=== PATIENT | female | born 1965 | race Caucasian/White ===

== ENCOUNTER 2016-08-10 19:05 | Inpatient (IN) | payer OTHER, MEDICARE ==
[~2016-08-10] VITALS: Ht 160 cm; Wt 90.6 kg
[~2016-08-10 19:05] MED LIST: ATEN-102 PO; CEPH500 PO; CYMB30CA PO; DICL50 PO; DICL50TA3 PO; EFFE150C PO; GABA800T PO; HYDR12.56 PO; METF500 PO; ORPH100T PO; ROBA500T PO; SULF-154 PO; WAL-10TA2 PO
[2016-08-10 19:25] VITALS: BP 166/83; PULSE 76; RESP 16; TEMP 98.1; O2SAT 96
[2016-08-10] MEDS ORDERED: METH500T3 PO (19:25)
[2016-08-10] MEDS ORDERED: FLUT1INH INH (19:25)
[2016-08-10] MEDS ORDERED: DULO1CAP3 PO (19:25)
[2016-08-10] MEDS ORDERED: ATEN50TA PO (19:25)
[2016-08-10] MEDS ORDERED: METF500T PO (19:25)
[2016-08-10] MEDS ORDERED: GABA800T PO (19:25)
[2016-08-10] MEDS ORDERED: HYDR12.57 PO (19:25)
[2016-08-10] MEDS ORDERED: MONT10TA4 PO (19:25)
[2016-08-10] MEDS ORDERED: IBUP400T20 PO (19:25)
[2016-08-10 20:19] LABS: AUTOMATED NEUTROPHIL # 4.8 TH/MM3 (1.8-7.7); BASOPHIL # 0.1 TH/MM3 (0-0.2); BASOPHIL % 0.7 % (0.0-2.0); EOSINOPHIL # 0.4 TH/MM3 (0-0.4); EOSINOPHIL % 3.8 % (0.0-4.0); HEMATOCRIT 42.6 % (35.0-46.0); HEMO FLAGS DIFF FINAL; LYMPH % 37.6 % (9.0-44.0); LYMPHOCYTE # 3.7 TH/MM3 (1.0-4.8); MEAN CELL VOLUME 89.1 FL (80.0-100.0); MEAN CORPUSCULAR HEMOGLOBIN 30.2 PG (27.0-34.0); MEAN CORPUSCULAR HGB CONC 33.9 % (32.0-36.0); MONO % 9.5 % (0.0-8.0); NEUT % 48.4 % (16.0-70.0); PLATELET COUNT 336 TH/MM3 (150-450); RED BLOOD COUNT 4.78 MIL/MM3 (4.00-5.30); RED CELL DISTRIBUTION WIDTH 12.9 % (11.6-17.2); WHITE BLOOD COUNT 9.9 TH/MM3 (4.0-11.0)
[2016-08-10 20:23] LABS: AMPHETAMINE, URINE NEG (NEG); BARBITURATES, URINE NEG (NEG); COCAINE, URINE NEG (NEG)
[2016-08-10 20:41] LABS: ANION GAP 10 MEQ/L (5-15)
[2016-08-10 20:44] LABS: ALKALINE PHOSPHATASE 94 U/L (45-117); ALT (GPT) 28 U/L (10-53); AST (GOT) 24 U/L (15-37); BICARBONATE 26.3 MEQ/L (21.0-32.0); BLOOD UREA NITROGEN 9 MG/DL (7-18); CHLORIDE 103 MEQ/L (98-107); GLOMERULAR FILTRATION RATE 77 ML/MIN (>89); POTASSIUM 3.7 MEQ/L (3.5-5.1); SODIUM (NA) 139 MEQ/L (136-145); TOTAL BILIRUBIN ADULT 0.3 MG/DL (0.2-1.0)
--- NOTE | 2016-08-10 21:19 | PD ---
HPI Chief Complaint: Psychiatric Symptoms Time Seen by Provider: 21:18 Travel History International Travel<30 days: No Contact w/Intl Traveler<30days: No Traveled to known affect area: No History of Present Illness HPI 51-year-old female presents to the emergency Department a Dyer act with depression and thoughts of suicide. She states that she's been feeling depressed for many years and is on Cymbalta which she doesn't think is working. She doesn't have a plan to commit suicide but just wants to . She says she is tired. She denies homicidal ideation. Denies drug use, alcohol use. Reports a pack of cigarettes daily and is requesting a nicotine patch. Denies auditory or visual hallucinations. Says she has had pain to her lower right rib cage into the lateral right rib cage for 1 week. Pain is worse with movement and palpation. Pain is constant. She hasn't taken any medications or tried any treatment to alleviate her pain. She denies any heavy lifting, straining, fall. Denies chest pain, shortness of breath. Denies hemoptysis. Says she hears herself wheezing but that is due to the cigarettes. Denies fever , chills, nausea, vomiting, abdominal pain, change in urine or stool. Denies recent illness including cough, nasal congestion, sore throat, ear pain. She has history of diabetes and is on metformin 750 mg twice daily. History of hypertension. Allergies to Prozac, Seroquel, tramadol. No other modifying factors or associated signs and symptoms. PFSH Past Medical History Cardiovascular Problems: Yes (HTN) Diabetes: Yes Patient Takes Glucophage: Yes Diminished Hearing: No Respiratory: Yes (ASTHMA) Tetanus Vaccination: Unknown Influenza Vaccination: No ?: Not Past Surgical History Surgical History: No Previous Surgery Social History Alcohol Use: No Tobacco Use: Yes Substance Use: No Allergies-Medications (Allergen,Severity, Reaction): Coded Allergies: Seroquel (Verified Allergy, Severe, UNCONSCIOUS, 08/10/16) Prozac (Verified Adverse Reaction, Severe, raised hr, 08/10/16) Tramadol (Verified Adverse Reaction, Intermediate, anixiety, 08/10/16) Reported Meds & Prescriptions Reported Meds & Active Scripts Active Reported Metformin (Metformin HCl) 500 Mg Tab 500 Mg PO BIDPC With meals Hydrochlorothiazide 12.5 Mg Cap 12.5 Mg PO DAILY Duloxetine DR (Duloxetine HCl) 60 Mg Capdr 60 Mg PO DAILY Breo Ellipta Inh (Fluticasone/Vilanterol) 100-25 Mcg/Act Inh 1 Puff INH DAILY Use daily at the same time. Atenolol 50 Mg Tab 50 Mg PO DAILY Montelukast (Montelukast Sodium) 10 Mg Tab 10 Mg PO HS Methocarbamol 500 Mg Tab 1,000 Mg PO QID Ibuprofen 400 Mg Tab 400 Mg PO Q6H PRN Gabapentin 800 Mg Tab 800 Mg PO TID Review of Systems Except as stated in HPI: all other systems reviewed are Neg Physical Exam Narrative GENERAL: Well-nourished, well-developed female patient, in no acute distress SKIN: Warm and dry. HEAD: Atraumatic. Normocephalic. EYES: Pupils equal and round. ENT: Mucosa pink and moist. NECK: Supple. Trachea midline. CHEST: Reproducible tenderness under the right breast to the rib cage and around to the right lateral aspect; without deformity or crepitance. No retractions or use of accessory muscles. CARDIOVASCULAR: Regular rate and rhythm. No murmur appreciated. RESPIRATORY: No accessory muscle use. Clear to auscultation. Breath sounds equal bilaterally. GASTROINTESTINAL: Abdomen soft, non-tender, nondistended. Hepatic and splenic margins not palpable. Bowel sounds are active 4 quadrants. MUSCULOSKELETAL: No obvious deformities. No clubbing. No cyanosis. No edema. NEUROLOGICAL: Awake and alert. Oriented 3. No obvious cranial nerve deficits. Motor grossly within normal limits. Normal speech. Moves all extremities. 5/5 strength to all extremities. PSYCHIATRIC: No delusional thought processes. No hallucinations. Data Data Last Documented VS Vital Signs Date Time Temp Pulse Resp B/P Pulse Ox O2 Delivery O2 Flow Rate FiO2 08/10/16 19:27 16 08/10/16 19:25 98.1 76 166/83 96 Orders Complete Blood Count With Diff (08/10/16 19:27) Comprehensive Metabolic Panel (08/10/16 19:27) Drug Screen, Random Urine (08/10/16 19:27) Alcohol (Ethanol) (08/10/16 19:27) Psych Screen (08/10/16 19:27) Chest, Single Ap (08/10/16 21:24) Nicotine 21 Mg Patch.24 Hr (Habitrol 21 (08/10/16 21:30) Metformin (Glucophage) (08/10/16 21:30) Labs Laboratory Tests Test 08/10/16 19:30 White Blood Count 9.9 TH/MM3 Red Blood Count 4.78 MIL/MM3 Hemoglobin 14.4 GM/DL Hematocrit 42.6 % Mean Corpuscular Volume 89.1 FL Mean Corpuscular Hemoglobin 30.2 PG Mean Corpuscular Hemoglobin 33.9 % Concent Red Cell Distribution Width 12.9 % Platelet Count 336 TH/MM3 Mean Platelet Volume 6.9 FL Neutrophils (%) (Auto) 48.4 % Lymphocytes (%) (Auto) 37.6 % Monocytes (%) (Auto) 9.5 % Eosinophils (%) (Auto) 3.8 % Basophils (%) (Auto) 0.7 % Neutrophils # (Auto) 4.8 TH/MM3 Lymphocytes # (Auto) 3.7 TH/MM3 Monocytes # (Auto) 0.9 TH/MM3 Eosinophils # (Auto) 0.4 TH/MM3 Basophils # (Auto) 0.1 TH/MM3 CBC Comment DIFF FINAL Differential Comment Sodium Level 139 MEQ/L Potassium Level 3.7 MEQ/L Chloride Level 103 MEQ/L Carbon Dioxide Level 26.3 MEQ/L Anion Gap 10 MEQ/L Blood Urea Nitrogen 9 MG/DL Creatinine 0.79 MG/DL Estimat Glomerular Filtration 77 ML/MIN Rate Random Glucose 80 MG/DL Calcium Level 9.1 MG/DL Total Bilirubin 0.3 MG/DL Aspartate Amino Transf 24 U/L (AST/SGOT) Alanine Aminotransferase 28 U/L (ALT/SGPT) Alkaline Phosphatase 94 U/L Total Protein 7.6 GM/DL Albumin 3.8 GM/DL Urine Opiates Screen NEG Urine Barbiturates Screen NEG Urine Amphetamines Screen NEG Urine Benzodiazepines Screen POS Urine Cocaine Screen NEG Urine Cannabinoids Screen NEG Ethyl Alcohol Level LESS THAN 3 MG/DL MDM Medical Decision Making Medical Screen Exam Complete: Yes Emergency Medical Condition: Yes Medical Record Reviewed: Yes Differential Diagnosis Medical clearance for psych evaluation, muscle strain, rib contusion Narrative Course 51-year-old female presents under Dyer act. Patient complaining of right lower rib pain that radiates to the right lateral ribs. Pain is reproducible on physical exam. No deformity, crepitance, retractions, tachypnea. Chest x- ray ordered. Nicotine patch ordered per patient request. She presents a pack of cigarette per day. Patient is diabetic and on metformin; reports being on 750 mg twice a day. According to her record she is on 500 mg twice a day. Patient had he had food tray approximately 30-60 minutes ago. Metformin 500 mg 1 ordered. Labs are unremarkable. 2201: Chest x-ray concludes No acute disease and osseous structures are intact. Patient medically cleared for psych evaluation. Diagnosis Primary Impression: Medical clearance for psychiatric admission Condition: Stable Araceli Bañuelos Aug 10, 2016 21:19
[2016-08-10] MEDS ORDERED: metFORMIN HCL 500 MG TAB PO ONE (21:30)
[2016-08-10] MEDS ORDERED: NICOTINE 21 MG/24 HR PATCH TD ONE (21:30)
--- NOTE | 2016-08-10 21:52 | RADRPT ---
EXAM DATE/TIME: 08/10/2016 21:49 [facility] COMPARISON: No previous studies available for comparison. INDICATIONS : Chest pain. MEDICAL HISTORY : Asthma. SURGICAL HISTORY : Hysterectomy. ENCOUNTER: Initial ACUITY: 1 day PAIN SCORE: 7/10 LOCATION: Right chest FINDINGS: A single view of the chest demonstrates the lungs to be symmetrically aerated without evidence of mas s, infiltrate or effusion. The cardiomediastinal contours are unremarkable. Osseous structures are intact. CONCLUSION: No acute disease. Brooks Robert MD on August 10, 2016 at 21:50 Board Certified Radiologist. This report was verified electronically.
[2016-08-10 22:45] VITALS: BP 138/70; PULSE 72; RESP 18; TEMP 97.4; O2SAT 96
[2016-08-11 03:11] VITALS: BP 168/80; PULSE 67; RESP 18; TEMP 97.4; O2SAT 96
[2016-08-11 06:25] VITALS: BP 169/94; PULSE 70; RESP 18; O2SAT 97
[2016-08-11 10:43] VITALS: BP 127/63; PULSE 79; RESP 16; O2SAT 95
[2016-08-11] MEDS ORDERED: LORazepam 2 MG/ML VIAL IM PRN (13:30)
[2016-08-11] MEDS ORDERED: MAGNESIUM HYDROXIDE SUSP 30 ML CUP PO PRN (13:30)
[2016-08-11] MEDS ORDERED: ALUMINUM/MAGNESIUM/SIMETH 30 ML CUP PO PRN (13:30)
[2016-08-11 14:30] VITALS: BP 129/83; PULSE 78; RESP 18; TEMP 97
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
[2016-08-11] MEDS: DULoxetine HCl DR 60 MG CAP PO SCH (16:38)
[2016-08-11] MEDS ORDERED: RESP: ALBUTEROL 2.5 MG/3 ML NEB (PRN) NEB (17:30)
--- NOTE | 2016-08-11 17:41 | PD.CONS ---
[facility] Request[facility] By Dr. Souza Reason for Consult Medical management Primary Care Physician Unknown Diagnoses: History of Present Illness The patient is a 51-year-old female with a past medical history of hypertension , hyperlipidemia, diabetes and depression who is presenting to the hospital with suicidal ideation. The patient says she is recovering alcoholic and says she binged on alcohol over the holidays. She said she got very depressed in regards to the holidays and dealing with her children and she started to develop ideas of harming herself. She says she did not have a specific plan but she said she has tried to kill herself in the past by taking lots of pills. She says she has been undergoing a significant amount of stress lately. She says her last suicide attempt was over a year ago. She says she went to her primary care doctor and told her that she was thinking about these things and she was brought to the hospital. The patient mentions that she generally gets fever blisters under times of stress. She complains of cold sores around her lips as well as on her wrists and ankles. She says she generally takes Abreva for the cold sores on her lips. She says the blisters on her wrists and ankles are healing. The patient mentions she had left foot surgery a year ago and still has problems with her left foot going numb every once in a while. She says she checks her blood sugar regularly and it is relatively well controlled. Review of Systems Constitutional: COMPLAINS OF: Fatigue, Weight gain, DENIES: Fever Ears, nose, mouth, throat: COMPLAINS OF: Oral lesions Respiratory: COMPLAINS OF: Cough Cardiovascular: DENIES: Lower Extremity Edema Gastrointestinal: DENIES: Constipation Musculoskeletal: COMPLAINS OF: Joint pain, Muscle aches Integumentary: COMPLAINS OF: Abnormal pigmentation, Rash Neurologic: COMPLAINS OF: Abnormal gait, Paresthesias Psychiatric: COMPLAINS OF: Mood changes, Depression, Suicidal Ideation Past Family Social History Allergies: Coded Allergies: Seroquel (Verified Allergy, Severe, UNCONSCIOUS, 08/10/16) Prozac (Verified Adverse Reaction, Severe, raised hr, 08/10/16) Tramadol (Verified Adverse Reaction, Intermediate, anixiety, 08/10/16) Past Medical History Diabetes Depression Asthma Hypertension Hyperlipidemia Past Surgical History Left foot surgery Back surgery Active Ordered Medications Current Medications Medications (Trade) Dose Ordered Sig/Dior Route Start Time Stop Time Status Last Admin (Ativan) 1 mg Q6H PRN PO 08/11/16 13:30 (Ativan Inj) 1 mg Q6H PRN IM 08/11/16 13:30 (Tylenol) 650 mg Q4H PRN PO 08/11/16 13:30 (Milk Of Magnesia Liq) 30 ml DAILY PRN PO 08/11/16 13:30 (Mag-Al Plus Susp Liq) 30 ml Q6H PRN PO 08/11/16 13:30 (Cymbalta Dr) 60 mg DAILY PO 08/11/16 16:00 08/11/16 16:38 (Abilify) 10 mg HS PO 08/11/16 21:00 (Wellbutrin Sr) 150 mg BID PO 08/11/16 21:00 (Tenormin) 50 mg DAILY PO 08/11/16 17:15 (Breo Ellipta 100-25 Inh) 1 puff DAILY INH 08/11/16 17:15 (Neurontin) 800 mg TID PO 08/11/16 18:00 (Microzide) 12.5 mg DAILY PO 08/12/16 09:00 (Glucophage) 500 mg BIDPC PO 08/11/16 18:00 (Singulair) 10 mg HS PO 08/11/16 21:00 (Flu (Quadrivalent) Vaccine Inj) 0.5 ml ONCE ONCE IM 08/12/16 10:00 08/12/16 10:01 (Habitrol 21 Mg Patch.24 Hr) 1 patch DAILY TD 08/11/16 17:30 UNV Family History Hypertension Hyperlipidemia Diabetes Depression CAD Social History The patient smokes one pack of cigarettes daily. She used to be an alcoholic but did relapse this holiday season, her last drink being about 5 days ago. She denies illicit drug use. Physical Exam Vital Signs Vital Signs Date Time Temp Pulse Resp B/P Pulse Ox O2 Delivery O2 Flow Rate FiO2 08/11/16 14:30 97.0 78 18 129/83 08/11/16 10:43 79 16 127/63 95 08/11/16 06:25 70 18 169/94 97 08/11/16 03:11 97.4 67 18 168/80 96 Room Air 08/10/16 22:45 97.4 72 18 138/70 96 Room Air 08/10/16 19:27 16 08/10/16 19:25 98.1 76 16 166/83 96 Physical Exam GENERAL: This is a well-nourished, well-developed patient, in no apparent distress. SKIN: Herpetic lesions around lips. Sores on bilateral wrists. HEAD: Atraumatic. Normocephalic. No temporal or scalp tenderness. EYES: Pupils equal round and reactive. Extraocular motions intact. No scleral icterus. No injection or drainage. ENT: Nose without bleeding, purulent drainage or septal hematoma. Throat without erythema, tonsillar hypertrophy or exudate. Uvula midline. Airway patent. NECK: Trachea midline. No JVD or lymphadenopathy. Supple, nontender, no meningeal signs. CARDIOVASCULAR: Regular rate and rhythm without murmurs, gallops, or rubs. RESPIRATORY: Clear to auscultation. Breath sounds equal bilaterally. No wheezes , rales, or rhonchi. GASTROINTESTINAL: Abdomen soft, non-tender, nondistended. No hepato-splenomegaly , or palpable masses. No guarding. MUSCULOSKELETAL: Extremities without clubbing, cyanosis, or edema. No joint tenderness, effusion, or edema noted. NEUROLOGICAL: Awake and alert. Cranial nerves II through XII intact. Motor and sensory grossly within normal limits. Five out of 5 muscle strength in all muscle groups. Normal speech. PSYCH: Mood and affect appropriate. Laboratory Laboratory Tests Test 08/10/16 19:30 White Blood Count 9.9 Red Blood Count 4.78 Hemoglobin 14.4 Hematocrit 42.6 Mean Corpuscular Volume 89.1 Mean Corpuscular Hemoglobin 30.2 Mean Corpuscular Hemoglobin 33.9 Concent Red Cell Distribution Width 12.9 Platelet Count 336 Mean Platelet Volume 6.9 Neutrophils (%) (Auto) 48.4 Lymphocytes (%) (Auto) 37.6 Monocytes (%) (Auto) 9.5 Eosinophils (%) (Auto) 3.8 Basophils (%) (Auto) 0.7 Neutrophils # (Auto) 4.8 Lymphocytes # (Auto) 3.7 Monocytes # (Auto) 0.9 Eosinophils # (Auto) 0.4 Basophils # (Auto) 0.1 CBC Comment DIFF FINAL Differential Comment Sodium Level 139 Potassium Level 3.7 Chloride Level 103 Carbon Dioxide Level 26.3 Anion Gap 10 Blood Urea Nitrogen 9 Creatinine 0.79 Estimat Glomerular Filtration 77 Rate Random Glucose 80 Calcium Level 9.1 Total Bilirubin 0.3 Aspartate Amino Transf 24 (AST/SGOT) Alanine Aminotransferase 28 (ALT/SGPT) Alkaline Phosphatase 94 Total Protein 7.6 Albumin 3.8 Urine Opiates Screen NEG Urine Barbiturates Screen NEG Urine Amphetamines Screen NEG Urine Benzodiazepines Screen POS Urine Cocaine Screen NEG Urine Cannabinoids Screen NEG Ethyl Alcohol Level LESS THAN 3 Result Diagram: 08/10/16192908/10/161929 Imaging Last Impressions Chest X-Ray 08/10/162123 Signed Impressions: Service Date/Time: Wednesday, August 10, 2016 21:49 - CONCLUSION: No acute disease. Brooks Robert MD Assessment and Plan Assessment and Plan Suicidal ideation The patient has a history of depression and previous suicide attempts. - Care per psychiatry. Diabetes The patient is on metformin as an outpatient. - Resume metformin and place on an insulin sliding scale. - Diabetic diet. Hypertension Blood pressure well controlled at this time. - Resume home medications including hydrochlorothiazide and atenolol. - Clonidine as needed. Cold sores The patient says she generally gets cold sores under times of stress. - Acyclovir cream ordered for a 5 day course. Change to PO if no improvement. Asthma Well-controlled at this time. Chest x-ray unremarkable. - Continue home inhaler. - Albuterol nebs as needed. Family history of CAD The patient reports concerns regarding her family history of heart disease. Chest x-ray unremarkable. - Check an EKG. PPx: Ambulation. Medicine will sign off on this stable patient. Please reconsult if needed. Discussed Condition With Pt. Je Thomas DO Aug 11, 2016 17:41
[2016-08-11] MEDS ORDERED: cloNIDine HCL 0.1 MG TAB PO PRN (17:45)
[2016-08-11] MEDS ORDERED: DEXTROSE 50% IN WATER 50 ML VIAL(D50) IV PUSH PRN (17:45)
[2016-08-11] MEDS ORDERED: GLUCAGON 1 MG/ML VIAL OTHER PRN (17:45)
[2016-08-11] MEDS: REMOVE OLD NICODERM (NICOTINE) PATCH TD SCH (18:00)
[2016-08-11] MEDS: THIAMINE HCL 100 MG TAB PO SCH (18:39)
[2016-08-11] MEDS: ATENOLOL 50 MG TAB PO SCH (18:39)
[2016-08-11] MEDS: metFORMIN HCL 500 MG TAB PO SCH (18:39)
[2016-08-11] MEDS: MULTIVITAMIN TAB PO SCH (18:39)
[2016-08-11] MEDS: FOLIC ACID 1 MG TAB PO SCH (18:39)
[2016-08-11] MEDS: GABAPENTIN 400 MG CAP PO SCH (18:39)
[2016-08-11 19:32] VITALS: BP 125/81; PULSE 68; RESP 18; TEMP 98.3; O2SAT 99
[2016-08-11] MEDS: MONTELUKAST SODIUM 10 MG TAB PO SCH (20:49)
[2016-08-11] MEDS: ARIPiprazole 10 MG TAB PO SCH (20:50)
[2016-08-11] MEDS: buPROPion HCL 150 MG SUSTAINED RELEASE TAB PO SCH (20:50)
[2016-08-11] MEDS: LORazepam 1 MG TAB PO PRN (20:54)
[2016-08-11] MEDS: ACYCLOVIR 5% CREAM 5 GM TUBE TOPICAL SCH ×2 (21:00→22:00)
[2016-08-11] MEDS: INSULIN ASPART SUPPLEMENTAL SCALE SQ SCH (21:00)
[2016-08-12 05:59] VITALS: BP 112/59; PULSE 64; RESP 17; TEMP 98.2; O2SAT 96
[2016-08-12] MEDS: ACYCLOVIR 5% CREAM 5 GM TUBE TOPICAL SCH ×5 (06:00→20:36)
[2016-08-12] MEDS: INSULIN ASPART SUPPLEMENTAL SCALE SQ SCH ×4 (06:15→20:45)
[2016-08-12 08:33] LABS: ANION GAP 8 MEQ/L (5-15); BICARBONATE 28.2 MEQ/L (21.0-32.0); BLOOD UREA NITROGEN 21 MG/DL (7-18); CHLORIDE 104 MEQ/L (98-107); POTASSIUM 4.1 MEQ/L (3.5-5.1); SODIUM (NA) 140 MEQ/L (136-145)
[2016-08-12 08:37] LABS: GLOMERULAR FILTRATION RATE 89 ML/MIN (>89); HDL CHOLESTEROL 48.8 MG/DL (40.0-60.0); LDL CHOLESTEROL 72 MG/DL (0-99)
[2016-08-12] MEDS: HYDROCHLOROTHIAZIDE 12.5 MG CAP PO SCH (08:57)
[2016-08-12] MEDS: NICOTINE 21 MG/24 HR PATCH TD SCH ×2 (08:57→09:00)
[2016-08-12] MEDS: FOLIC ACID 1 MG TAB PO SCH (08:58)
[2016-08-12] MEDS: THIAMINE HCL 100 MG TAB PO SCH (08:58)
[2016-08-12] MEDS: buPROPion HCL 150 MG SUSTAINED RELEASE TAB PO SCH ×2 (08:58→20:36)
[2016-08-12] MEDS: DULoxetine HCl DR 60 MG CAP PO SCH (08:58)
[2016-08-12] MEDS: ATENOLOL 50 MG TAB PO SCH (08:58)
[2016-08-12] MEDS: GABAPENTIN 400 MG CAP PO SCH ×3 (08:58→17:18)
[2016-08-12] MEDS: metFORMIN HCL 500 MG TAB PO SCH ×2 (08:58→17:18)
[2016-08-12] MEDS: MULTIVITAMIN TAB PO SCH (08:59)
[2016-08-12] MEDS: REMOVE OLD NICODERM (NICOTINE) PATCH TD SCH (09:00)
[2016-08-12] MEDS: FLUTICASONE 100 MCG/VILANTEROL 25 MCG INHALER INH SCH ×2 (09:00→09:01)
[2016-08-12] MEDS ORDERED: INFLUENZA VIRUS VACCINE (QUADRIVALENT) 0.5 ML SYR IM ONE (10:00)
[2016-08-12] MEDS: LORazepam 1 MG TAB PO PRN ×3 (10:15→22:02)
[2016-08-12] MEDS: ACETAMINOPHEN 325 MG TAB PO PRN ×2 (10:15→16:21)
[2016-08-12 11:38] LABS: HEMOGLOBIN A1a 1.7 %; HEMOGLOBIN A1b 2.2 %; HEMOGLOBIN Ao 82.4 %; HEMOGLOBIN LA1C 2.5 %; HEMOGLOBIN P3 4.4 %
--- NOTE | 2016-08-12 13:35 | HHI.PYPN ---
Subjective Remarks Patient was seen and discussed with the property staff accountant. Patient claimed that she has been doing okay. Still has been feeling somewhat sad and depressed and guilty but working on her guilt. Feels safe in the hospital and denied any suicidal ideation intentions or plan. No behavior or management problem reported. Patient is complaining of some sedation probably secondary to the medication. Patient slept fairly well. Complains of some vivid dreams. Could be reassured. Continue with the same treatment Review of Systems Except as stated in HPI: all other systems reviewed are Neg Psychiatric: COMPLAINS OF: Anxiety, Mood changes, Depression Objective Alert: Yes [place]: Person, Place, Situation Mood: Anxious, Depressed Affect: Labile Memory Intact: Recent Hallucinations: Other (mildly impaired memory for recent events denied any active auditory or visual hallucinations) Delusions: No Delusion Type: Other (no delusional material at this time) Suicidal: Ideation (patient denied any active suicidal ideation intentions or plan feels safe in the hospital) Homicidal: Ideation (denied) Insight/Judgement Fair Labs Test 08/12/16 07:01 Sodium Level 140 MEQ/L Potassium Level 4.1 MEQ/L Chloride Level 104 MEQ/L Carbon Dioxide Level 28.2 MEQ/L Anion Gap 8 MEQ/L Blood Urea Nitrogen 21 MG/DL Creatinine 0.70 MG/DL Estimat Glomerular Filtration 89 ML/MIN Rate Random Glucose 114 MG/DL Hemoglobin A1c 6.3 % Calcium Level 10.0 MG/DL Triglycerides Level 181 MG/DL Cholesterol Level 157 MG/DL LDL Cholesterol 72 MG/DL HDL Cholesterol 48.8 MG/DL Cholesterol/HDL Ratio 3.21 RATIO Vitals/IOs Vital Signs Date Time Temp Pulse Resp B/P Pulse Ox O2 Delivery O2 Flow Rate FiO2 08/12/16 05:59 98.2 64 17 112/59 96 08/11/16 03:11 Room Air Assessment & Plan Problem List: (1) Bipolar affective disorder, depressed, moderate ICD Code: F31.32 (2) Chronic back pain ICD Code: M54.9 Assessment & Plan Estimated LOS: days Justification for Cont. Inpt. Monitoring of the medication and titrating the medication to stabilize the mood Request HC Surrog/Guard Advoc?: No Problem Qualifiers (1) Chronic back pain: Baltazar Souza MD Aug 12, 2016 13:35
--- NOTE | 2016-08-12 14:30 | EKG ---
Date Performed: 08/11/2016 Time Performed: 17:47:25 PTAGE: 51 years EKG: Sinus rhythm NORMAL ECG NO PREVIOUS TRACING DOCTOR: Phyllis Healy Interpretating Date/Time 08/12/2016 14:22:56
--- NOTE | 2016-08-12 17:13 | HHI.PR ---
Subjective Remarks Follow-up for toothache next Patient complained of toothache, right lower molar and right shoulder pain from a fall. No fever or chills. No nausea and vomiting. Objective Vitals Vital Signs Date Time Temp Pulse Resp B/P Pulse Ox O2 Delivery O2 Flow Rate FiO2 08/12/16 05:59 98.2 64 17 112/59 96 08/11/16 19:32 98.3 68 18 125/81 99 Result Diagram: 08/10/16 1930 08/12/16 0701 Objective Remarks Not in distress, well-nourished, looks stated age PERRL, pink conjunctiva without injection, anicteric Nose without bleeding, airway patent, oropharynx clear Poor dentition with numerous cavities. Cold sores lower lip Normal rate and regular rhythm, no murmurs gallops or rubs appreciated. Clear to auscultation and symmetric bilaterally, normal respiratory effort. Normal bowel sounds, soft, non-tender, nondistended, no guarding. Extremities without clubbing, cyanosis, or edema. No rash of generalized distribution. Skin is warm and dry. AAO x3, no cranial nerve deficits, moves all 4 extremities, no focal neurologic deficits. Good range of motion right shoulder, mildly tender. Normal mood, appropriate affect A/P Assessment and Plan Suicidal ideation The patient has a history of depression and previous suicide attempts. - Care per psychiatry. Diabetes The patient is on metformin as an outpatient. - Resume metformin and place on an insulin sliding scale. - Diabetic diet. Hypertension Blood pressure well controlled at this time. - Resume home medications including hydrochlorothiazide and atenolol. - Clonidine as needed. Cold sores The patient says she generally gets cold sores under times of stress. - Acyclovir cream ordered for a 5 day course. Change to PO if no improvement. Asthma Well-controlled at this time. Chest x-ray unremarkable. - Continue home inhaler. - Albuterol nebs as needed. Family history of CAD The patient reports concerns regarding her family history of heart disease. Chest x-ray unremarkable. - Check an EKG. Cavities, possible odontogenic infection-start clindamycin and ibuprofen for pain. Right shoulder pain-check right shoulder x-ray. Ibuprofen for pain. PPx: Ambulation. Daniel Olvera MD Aug 12, 2016 17:13 Daniel Olvera MD Aug 12, 2016 17:13
[2016-08-12 18:48] VITALS: BP 119/71; PULSE 87; RESP 18; TEMP 98.2; O2SAT 100
[2016-08-12] MEDS: ARIPiprazole 10 MG TAB PO SCH (20:35)
[2016-08-12] MEDS: MONTELUKAST SODIUM 10 MG TAB PO SCH (20:36)
[2016-08-12] MEDS: CLINDAMYCIN 150 MG CAP PO SCH (22:02)
[2016-08-13] MEDS: ACYCLOVIR 5% CREAM 5 GM TUBE TOPICAL SCH ×5 (05:12→22:00)
[2016-08-13] MEDS: CLINDAMYCIN 150 MG CAP PO SCH ×3 (05:13→20:58)
[2016-08-13 05:51] VITALS: BP 119/61; PULSE 78; RESP 16; TEMP 97.9
[2016-08-13] MEDS: INSULIN ASPART SUPPLEMENTAL SCALE SQ SCH ×4 (06:14→20:56)
[2016-08-13] MEDS: REMOVE OLD NICODERM (NICOTINE) PATCH TD SCH (09:00)
[2016-08-13] MEDS: IBUPROFEN 600 MG TAB PO PRN ×2 (09:06→18:15)
[2016-08-13] MEDS: LORazepam 1 MG TAB PO PRN ×3 (09:06→21:00)
[2016-08-13] MEDS: FLUTICASONE 100 MCG/VILANTEROL 25 MCG INHALER INH SCH (09:06)
[2016-08-13] MEDS: NICOTINE 21 MG/24 HR PATCH TD SCH (09:07)
[2016-08-13] MEDS: ATENOLOL 50 MG TAB PO SCH (09:08)
[2016-08-13] MEDS: GABAPENTIN 400 MG CAP PO SCH ×3 (09:08→18:14)
[2016-08-13] MEDS: FOLIC ACID 1 MG TAB PO SCH (09:08)
[2016-08-13] MEDS: metFORMIN HCL 500 MG TAB PO SCH ×2 (09:08→18:15)
[2016-08-13] MEDS: THIAMINE HCL 100 MG TAB PO SCH (09:08)
[2016-08-13] MEDS: HYDROCHLOROTHIAZIDE 12.5 MG CAP PO SCH (09:08)
[2016-08-13] MEDS: DULoxetine HCl DR 60 MG CAP PO SCH (09:08)
[2016-08-13] MEDS: buPROPion HCL 150 MG SUSTAINED RELEASE TAB PO SCH ×2 (09:08→20:58)
[2016-08-13] MEDS: MULTIVITAMIN TAB PO SCH (09:08)
[2016-08-13] MEDS: ACETAMINOPHEN 325 MG TAB PO PRN ×2 (13:41→21:00)
[2016-08-13 19:35] VITALS: BP 116/89; PULSE 88; RESP 16; TEMP 98.7; O2SAT 96
[2016-08-13] MEDS: MONTELUKAST SODIUM 10 MG TAB PO SCH (20:58)
[2016-08-13] MEDS: ARIPiprazole 10 MG TAB PO SCH (20:58)
--- NOTE | 2016-08-13 21:05 | HHI.PYPN ---
Subjective Remarks Pt seen and discussed with staff. Pt c/o of feeling distracted and racing thoughts. "I'm out there". She reports that mood is better today. No medication side effects. She denies SI/HI. Objective Alert: Yes [place]: Person, Place, Situation Mood: Anxious, Depressed Affect: Labile Memory Intact: Immediate, Recent Hallucinations: Other (none) Delusions: No Delusion Type: Other (no delusional material at this time) Suicidal: Ideation (patient denied any active suicidal ideation intentions or plan feels safe in the hospital) Homicidal: Ideation (denied) Insight/Judgement limited Vitals/IOs Vital Signs Date Time Temp Pulse Resp B/P Pulse Ox O2 Delivery O2 Flow Rate FiO2 08/13/16 19:35 98.7 88 16 116/89 96 08/11/16 03:11 Room Air Assessment & Plan Problem List: (1) Bipolar affective disorder, depressed, moderate ICD Code: F31.32 (2) Chronic back pain ICD Code: M54.9 Assessment & Plan Continue current tx plan.Estimated LOS: days Justification for Cont. Inpt. risk of decompensation. Request HC Surrog/Guard Advoc?: No Problem Qualifiers (1) Chronic back pain: Iwona Daniel MD Aug 13, 2016 21:05
[2016-08-14 05:43] VITALS: BP 108/58; PULSE 67; RESP 18; TEMP 98
[2016-08-14] MEDS: CLINDAMYCIN 150 MG CAP PO SCH ×3 (05:57→20:39)
[2016-08-14] MEDS: INSULIN ASPART SUPPLEMENTAL SCALE SQ SCH ×4 (05:58→19:59)
[2016-08-14] MEDS: ACYCLOVIR 5% CREAM 5 GM TUBE TOPICAL SCH ×5 (05:58→20:42)
[2016-08-14] MEDS: FLUTICASONE 100 MCG/VILANTEROL 25 MCG INHALER INH SCH (08:43)
[2016-08-14] MEDS: buPROPion HCL 150 MG SUSTAINED RELEASE TAB PO SCH ×2 (08:44→19:55)
[2016-08-14] MEDS: NICOTINE 21 MG/24 HR PATCH TD SCH (08:44)
[2016-08-14] MEDS: metFORMIN HCL 500 MG TAB PO SCH ×2 (08:47→17:51)
[2016-08-14] MEDS: GABAPENTIN 400 MG CAP PO SCH ×3 (08:47→17:51)
[2016-08-14] MEDS: DULoxetine HCl DR 60 MG CAP PO SCH (08:48)
[2016-08-14] MEDS: THIAMINE HCL 100 MG TAB PO SCH (08:48)
[2016-08-14] MEDS: MULTIVITAMIN TAB PO SCH (08:48)
[2016-08-14] MEDS: ATENOLOL 50 MG TAB PO SCH (08:48)
[2016-08-14] MEDS: FOLIC ACID 1 MG TAB PO SCH (08:48)
[2016-08-14] MEDS: HYDROCHLOROTHIAZIDE 12.5 MG CAP PO SCH (08:48)
[2016-08-14] MEDS: IBUPROFEN 600 MG TAB PO PRN ×2 (08:59→15:56)
[2016-08-14] MEDS: LORazepam 1 MG TAB PO PRN ×3 (08:59→19:55)
[2016-08-14] MEDS: REMOVE OLD NICODERM (NICOTINE) PATCH TD SCH (09:00)
--- NOTE | 2016-08-14 17:46 | HHI.PYPN ---
Subjective Remarks Pt seen and discussed with staff. She reports feeling tired today and has been isolated to room. She reports that mood is okay today and improving. No behavioral problems. No SI/HI Objective Alert: Yes [place]: Person, Place, Date, Situation Mood: Anxious, Depressed Affect: Labile (decreased) Memory Intact: Immediate, Recent, Remote Hallucinations: Other (none) Delusions: No Delusion Type: Other (no delusional material at this time) Suicidal: Ideation (patient denied any active suicidal ideation intentions or plan feels safe in the hospital) Homicidal: Ideation (denied) Insight/Judgement limited Vitals/IOs Vital Signs Date Time Temp Pulse Resp B/P Pulse Ox O2 Delivery O2 Flow Rate FiO2 08/14/16 05:43 98.0 67 18 108/58 08/13/16 19:35 96 08/11/16 03:11 Room Air Assessment & Plan Problem List: (1) Bipolar affective disorder, depressed, moderate ICD Code: F31.32 (2) Chronic back pain ICD Code: M54.9 Assessment & Plan Continue current tx plan. Estimated LOS: days Justification for Cont. Inpt. risk of decompensating Request HC Surrog/Guard Advoc?: No Problem Qualifiers (1) Chronic back pain: Iwona Daniel MD Aug 14, 2016 17:46
[2016-08-14 19:33] VITALS: BP 125/64; PULSE 80; RESP 18; TEMP 98.3; O2SAT 99
[2016-08-14] MEDS: MONTELUKAST SODIUM 10 MG TAB PO SCH (19:55)
[2016-08-14] MEDS: ARIPiprazole 10 MG TAB PO SCH (19:55)
[2016-08-14] MEDS: ACETAMINOPHEN 325 MG TAB PO PRN ×2 (19:57→22:31)
[2016-08-15 05:00] VITALS: BP 109/64; PULSE 67; RESP 18; TEMP 98
[2016-08-15] MEDS: ACYCLOVIR 5% CREAM 5 GM TUBE TOPICAL SCH ×5 (06:00→20:21)
[2016-08-15] MEDS: CLINDAMYCIN 150 MG CAP PO SCH ×3 (06:00→20:11)
[2016-08-15] MEDS: LORazepam 1 MG TAB PO PRN ×3 (06:38→20:19)
[2016-08-15] MEDS: IBUPROFEN 600 MG TAB PO PRN ×2 (06:38→16:16)
[2016-08-15] MEDS: INSULIN ASPART SUPPLEMENTAL SCALE SQ SCH ×4 (06:39→20:20)
[2016-08-15] MEDS: FOLIC ACID 1 MG TAB PO SCH (08:24)
[2016-08-15] MEDS: NICOTINE 21 MG/24 HR PATCH TD SCH (08:24)
[2016-08-15] MEDS: DULoxetine HCl DR 60 MG CAP PO SCH (08:24)
[2016-08-15] MEDS: metFORMIN HCL 500 MG TAB PO SCH ×2 (08:24→17:56)
[2016-08-15] MEDS: buPROPion HCL 150 MG SUSTAINED RELEASE TAB PO SCH ×2 (08:24→20:10)
[2016-08-15] MEDS: GABAPENTIN 400 MG CAP PO SCH ×3 (08:24→17:56)
[2016-08-15] MEDS: REMOVE OLD NICODERM (NICOTINE) PATCH TD SCH (08:24)
[2016-08-15] MEDS: THIAMINE HCL 100 MG TAB PO SCH (08:24)
[2016-08-15] MEDS: ATENOLOL 50 MG TAB PO SCH (08:24)
[2016-08-15] MEDS: HYDROCHLOROTHIAZIDE 12.5 MG CAP PO SCH (08:24)
[2016-08-15] MEDS: FLUTICASONE 100 MCG/VILANTEROL 25 MCG INHALER INH SCH (08:25)
[2016-08-15] MEDS: MULTIVITAMIN TAB PO SCH (08:25)
--- NOTE | 2016-08-15 10:53 | HHI.PYPN ---
Subjective Remarks Patient was seen and discussed with the staff physician. Patient reported that her blood sugar is okay. Sometimes she complains of feeling anxious and her daughter putting a lot of stress on her. Her daughter is a heroine addict. Patient also complains of for right upper abdominal pain and back pain in the ankle pain sometimes she feels depressed and crying but denied any suicidal ideation intentions or plan. Denied any side effects from the medication. Encouraged to participate in all the therapeutic activity on the floor. Continue with the same treatment. real estate services coordinator to assist in aftercare and discharge planning Review of Systems Except as stated in HPI: all other systems reviewed are Neg Gastrointestinal: COMPLAINS OF: Abdominal pain Musculoskeletal: COMPLAINS OF: Back pain Psychiatric: COMPLAINS OF: Anxiety, Depression Objective Alert: Yes [place]: Person, Place, Date, Situation Mood: Anxious, Depressed Affect: Labile (decreased) Memory Intact: Immediate, Recent, Remote Hallucinations: Other (none) Delusions: No Delusion Type: Other (no delusional material at this time) Suicidal: Ideation (patient denied any active suicidal ideation intentions or plan feels safe in the hospital) Homicidal: Ideation (denied) Insight/Judgement Fair Vitals/IOs Vital Signs Date Time Temp Pulse Resp B/P Pulse Ox O2 Delivery O2 Flow Rate FiO2 08/15/16 05:00 98.0 67 18 109/64 08/14/16 19:33 99 Assessment & Plan Problem List: (1) Bipolar affective disorder, depressed, moderate ICD Code: F31.32 (2) Chronic back pain ICD Code: M54.9 Assessment & Plan Estimated LOS: days Justification for Cont. Inpt. Monitoring of the medication to stabilize her mood and risk of decompensation Request HC Surrog/Guard Advoc?: No Problem Qualifiers (1) Chronic back pain: Baltazar Souza MD Aug 15, 2016 10:53
[2016-08-15] MEDS: CITALOPRAM HYDROBROMIDE 20 MG TAB PO SCH (11:00)
[2016-08-15] MEDS: ACETAMINOPHEN 325 MG TAB PO PRN (11:14)
--- NOTE | 2016-08-15 13:40 | HHI.PR ---
Subjective Remarks Follow-up visit toothache, abscess, cold sore, DM 2. Patient seen today. States that abscess in the tooth and toothache has improved, cold sore also is looking better. She complains of pain on her left lower extremity. States that she has fractures from it before and was taking Vicodin outside the hospital. Pain 6/10, radiating towards the toes, achy to sharp. Otherwise, denies shortness of breath/dyspnea, chest pain, palpitations, headaches, dizziness, nausea, vomiting, diarrhea. Objective Vitals Vital Signs Date Time Temp Pulse Resp B/P Pulse Ox O2 Delivery O2 Flow Rate FiO2 08/15/16 05:00 98.0 67 18 109/64 08/14/16 19:33 98.3 80 18 125/64 99 Result Diagram: 08/12/16 0701 Imaging Last Impressions Chest X-Ray 08/10/162123 Signed Impressions: Service Date/Time: Wednesday, August 10, 2016 21:49 - CONCLUSION: No acute disease. Brooks Robert MD Objective Remarks GENERAL: This is a well-nourished, well-developed patient, in no apparent distress. HEENT: Normocephalic. Pupils equal round and reactive. Nose without bleeding. Airway patent. NECK: Trachea midline. No JVD. Supple. CARDIOVASCULAR: Regular rate and rhythm without murmurs, gallops, or rubs. RESPIRATORY: Clear to auscultation. Breath sounds equal bilaterally. No wheezes , rales, or rhonchi. GASTROINTESTINAL: Abdomen soft, non-tender, nondistended. Bowel Sounds normoactive x4. MUSCULOSKELETAL: Extremities without clubbing, cyanosis, or edema. NEUROLOGICAL: Awake and alert. Oriented x 3. No focal neuro deficit. [place]. Normal speech. A/P Problem List: (1) Chronic back pain ICD Code: M54.9 Status: Acute (2) Bipolar affective disorder, depressed, moderate ICD Code: F31.32 Status: Acute (3) Medical clearance for psychiatric admission ICD Code: Z00.8 Status: Acute (4) Abscess ICD Code: L02.91 Status: Acute Assessment and Plan Patient is a 51 year old female who came into the hospital secondary to suicidal ideation. Now admitted to inpatient psychiatry unit for further evaluation. Consulted for medical management. Suicidal ideation The patient has a history of depression and previous suicide attempts. - Care per psychiatry. Diabetes The patient is on metformin as an outpatient. - Resume metformin and place on an insulin sliding scale. - Diabetic diet. Hypertension Blood pressure well controlled at this time. - Resume home medications including hydrochlorothiazide and atenolol. - Clonidine as needed. Cold sores The patient says she generally gets cold sores under times of stress. - Acyclovir cream ordered for a 5 day course. Change to PO if no improvement. - Improving. Asthma Well-controlled at this time. Chest x-ray unremarkable. - Continue home inhaler. - Albuterol nebs as needed. Family history of CAD The patient reports concerns regarding her family history of heart disease. Chest x-ray unremarkable. - 08/11/16 EKG. showed sinus rhythm. BP trend within normal limits. Cavities, possible odontogenic infection-start clindamycin and ibuprofen for pain. - Improved abscess on the right side right BUCCAL area -Continue clindamycin until completed. Right shoulder pain-check right shoulder x-ray. Ibuprofen for pain. Left leg pain, chronic - will start tramadol. PPx: Ambulation. Discuss with patient, nursing Written by Casandra Gonzalez, acting as scribe for Dr. Mcgee on 08/15/16 at 14: 29. Attending Statement The documentation accurately reflects the work performed [id number] by me on at 14:29. Problem Qualifiers (1) Chronic back pain: Casandra Shine Aug 15, 2016 13:40 John Childers MD Aug 25, 2016 02:04
[2016-08-15 19:32] VITALS: BP 123/76; PULSE 78; RESP 18; TEMP 97.9; O2SAT 97
[2016-08-15] MEDS: MONTELUKAST SODIUM 10 MG TAB PO SCH (20:10)
[2016-08-15] MEDS ORDERED: ARIPiprazole 15 MG TAB PO SCH (21:00)
[2016-08-16] MEDS: LORazepam 1 MG TAB PO PRN ×2 (04:13→09:54)
[2016-08-16] MEDS: ACYCLOVIR 5% CREAM 5 GM TUBE TOPICAL SCH ×2 (06:23→10:00)
[2016-08-16] MEDS: CLINDAMYCIN 150 MG CAP PO SCH (06:23)
[2016-08-16] MEDS: INSULIN ASPART SUPPLEMENTAL SCALE SQ SCH ×2 (06:24→11:00)
[2016-08-16 06:50] VITALS: BP 118/59; PULSE 82; RESP 18; TEMP 97.3
[2016-08-16] MEDS: REMOVE OLD NICODERM (NICOTINE) PATCH TD SCH (09:00)
[2016-08-16] MEDS: FLUTICASONE 100 MCG/VILANTEROL 25 MCG INHALER INH SCH (09:00)
[2016-08-16] MEDS: ATENOLOL 50 MG TAB PO SCH (09:11)
[2016-08-16] MEDS: MULTIVITAMIN TAB PO SCH (09:11)
[2016-08-16] MEDS: THIAMINE HCL 100 MG TAB PO SCH (09:11)
[2016-08-16] MEDS: FOLIC ACID 1 MG TAB PO SCH (09:11)
[2016-08-16] MEDS: buPROPion HCL 150 MG SUSTAINED RELEASE TAB PO SCH (09:12)
[2016-08-16] MEDS: metFORMIN HCL 500 MG TAB PO SCH (09:12)
[2016-08-16] MEDS: GABAPENTIN 400 MG CAP PO SCH ×2 (09:13→13:00)
[2016-08-16] MEDS: CITALOPRAM HYDROBROMIDE 20 MG TAB PO SCH (09:13)
[2016-08-16] MEDS: DULoxetine HCl DR 60 MG CAP PO SCH (09:13)
[2016-08-16] MEDS: HYDROCHLOROTHIAZIDE 12.5 MG CAP PO SCH (09:14)
[2016-08-16] MEDS: NICOTINE 21 MG/24 HR PATCH TD SCH (09:14)
[2016-08-16] MEDS: IBUPROFEN 600 MG TAB PO PRN (09:54)
--- NOTE | 2016-08-16 11:29 | HHI.DS ---
Psychiatry Discharge Summary Inpatient Psychiatric care?: Yes Advance Directive: No Reason Not Provided: DOES NOT HAVE ONE Mental Health AdvanceDirective: No Health Care Proxy: No Admission Admission Date Aug 11, 2016 at 12:17 Admission Diagnosis: (1) Bipolar affective disorder, depressed, moderate ICD Code: F31.32 GAF Score: 45 Brief History This is a 51-year-old white deaf female was Manisha nye because she was feeling increasingly suicidal and depressed and wanting to end her life. By overdosing on the pills. She went to her doctor's office and she was Manisha nye. Patient claimed that she has been diagnosed with bipolar affective disorder for a long time and she has not been taking the medication or seeing her doctor. In the past she has taken Cymbalta gabapentin. She also has a chronic back surgery and back pain and pain in the leg. She also described that she has an eating disorder and she has put on a lot of weight. She admitted to crying spell feeling hopeless helpless and was endorsing some suicidal ideation. She feels safe in the hospital as she is getting some help. Willing to take the medication and outpatient follow-up upon discharge. Patient was living with her sister and her children and she claimed that she cannot live with that situation anymore was too much stressful. Tobacco Use In Past 30 Days: 5 or More Cigarettes/Day Alcohol Use: Monthly or Less Hospital Course Patient was started on supportive treatment. She persevered in all the therapeutic activity on the floor. Her medication was adjusted. She started to feel better was willing to stay with her sister and follow-up as an outpatient. Patient denied any suicidal ideation intentions or plan. Denied any active auditory or visual hallucinations. At that point arrangements are made for her to be discharged Results Blood Pressure 118 / 59 Vital Signs Date Time Temp Pulse Resp B/P Pulse Ox O2 Delivery O2 Flow Rate FiO2 08/16/16 06:50 97.3 82 18 118/59 08/15/16 19:32 97 Laboratory Results Test 08/12/16 07:01 Hemoglobin A1c 6.3 % (4.3-6.0) Triglycerides Level 181 MG/DL (42-150) Cholesterol Level 157 MG/DL (120-200) LDL Cholesterol 72 MG/DL (0-99) HDL Cholesterol 48.8 MG/DL (40.0-60.0) Summary of Major Lab Results Nothing significant Summary of Procedures None Imaging Last Impressions Chest X-Ray 1/4/17 2124 Signed Impressions: Service Date/Time: Wednesday, August 10, 2016 21:49 - CONCLUSION: No acute disease. Brooks Robert MD Pending results at discharge: No Medications # of Antipsychotic meds at D/C: 1 Appropriate >1 Antipsych meds?: 2 Approp Antipsych med options 1 - Minimum of three failed multiple trials of monotherapy. Discharge Discharge Date: Aug 16, 2016 Discharge Diagnosis: (1) Bipolar affective disorder, depressed, moderate Diagnosis: Principal ICD Code: F31.32 Mental Status Exam at Disch Patient was alert oriented 3 cooperative. Casually dressed. Her speech was clear spontaneous without any evidence of loose association. Her affect was appropriate. She denied any suicidal ideation intentions or plan. Denied any auditory or visual hallucinations. Willing to take the medication and follow- up as an outpatient Pt Condition on Discharge: Stable Discharge Disposition: Discharge Home Discharge Instructions Diet Instructions: As Tolerated, No Restrictions Activities you can perform: Regular-No Restrictions Scheduled Appointment: Favian Wallace Discharge Time <= 30 minutes Discharge/Advance Care Plan Health Problems: (1) Bipolar affective disorder, depressed, moderate (2) Chronic back pain Goals to promote your health * To prevent worsening of your condition and complications * To maintain your health at the optimal level Directions to meet your goals Take your medications as prescribed Follow your dietary instruction Follow activity as directed Keep your appointments as scheduled Take your immunizations and boosters as scheduled If your symptoms worsen call your PCP, if no PCP go to Urgent Care Center or Emergency Room For 27/02 questions related to your inpatient stay or results of tests pending at discharge, please contact Dr. Baltazar Souza at Smoking is Dangerous to Your Health. Avoid second hand smoking Baltazar Souza MD Aug 16, 2016 11:29
[2016-08-16] MEDS ORDERED: DULO1CAP3 PO (11:32)
[2016-08-16] MEDS ORDERED: CELE20TA PO (11:32)
[2016-08-16] MEDS ORDERED: BUPR150CR PO (11:32)
[2016-08-16] MEDS ORDERED: ARIP1TAB13 PO (11:32)
[2016-08-16] MEDS ORDERED: CLIN150 PO (13:05)
== END 2016-08-16 13:20 | disposition home or self-care (01) | DRG 885 ==
LOC: NEPJ 19:05 → NEDA 08-11 12:17 → H260 08-11 14:05
PROVIDERS: ADMIT Psychiatry & Neurology Psychiatry; ATTEND Psychiatry & Neurology Psychiatry
DX: F31.32 Bipolar disorder, current episode depressed, moderate (principal); R45.851 Suicidal ideations; F50.9 Eating disorder, unspecified; F10.10 Alcohol abuse, uncomplicated; H91.90 Unspecified hearing loss, unspecified ear; M79.606 Pain in leg, unspecified; M54.9 Dorsalgia, unspecified; G89.4 Chronic pain syndrome; I10 Essential (primary) hypertension; E11.9 Type 2 diabetes mellitus without complications; B00.1 Herpesviral vesicular dermatitis; R07.81 Pleurodynia; J45.909 Unspecified asthma, uncomplicated; E78.5 Hyperlipidemia, unspecified; M25.511 Pain in right shoulder; F17.210 Nicotine dependence, cigarettes, uncomplicated; K08.89 Other specified disorders of teeth and supporting structures; Z79.84 Long term (current) use of oral hypoglycemic drugs; Z91.5 Personal history of self-harm; Z82.49 Family history of ischemic heart disease and other diseases of the circulatory system; M79.605 Pain in left leg
CPT/HCPCS: 71010; 80048; 80053; 80061; 80307; 80320; 82948; 83036; 85025; 90686; 93005; 99284; J2060; Q2038